=== PATIENT | female | born 1940 | race Caucasian/White ===

== ENCOUNTER 2022-07-22 21:32 | Inpatient (IN) | payer OTHER ==
[~2022-07-22] VITALS: Ht 157.5 cm; Wt 60.3 kg
[2022-07-22 21:45] VITALS: BP 158/70
--- NOTE | 2022-07-22 21:45 | NUR ---
[facility] TO BED #10
--- NOTE | 2022-07-22 21:50 | NUR ---
Patient resting in bed, A/Ox4, chest rise and fall symmetrical, no s/s of distress, on monitor.
[2022-07-22] MEDS ORDERED: ONDANSETRON 4 MG/2 ML VIAL IVP ONE (22:15)
[2022-07-22] MEDS ORDERED: NACL 0.9% 1,000 ML IV ONE (22:15)
[2022-07-22] MEDS ORDERED: MORPHINE SULFATE 4 MG/ML SYR IVP ONE (22:15)
[2022-07-22 22:36] LABS: HEMATOCRIT 41.9 % (36-48); HEMOGLOBIN 14.1 g/dL (12.0-16.0); LYMPHOCYTES # (AUTO) 0.2 K/uL (2.5-16.5); LYMPHOCYTES % (AUTO) 1.4 % (20.5-51.1); MEAN CORPUSCULAR HEMOGLOBIN 30 pg (27-31); MEAN CORPUSCULAR HGB CONC 34 g/dL (33-37); MEAN CORPUSCULAR VOLUME 88.1 fL (80-94); MONOCYTES # (AUTO) 0.8 K/uL (0.8-1.0); MONOCYTES % (AUTO) 5.3 % (1.7-9.3); NEUTROPHILS # (AUTO) 14.5 K/uL (1.8-7.7); NEUTROPHILS % (AUTO) 93.3 % (42.2-75.2); PLATELET COUNT (AUTO) 221 K/uL (140-450); RED BLOOD CELL COUNT(AUTO) 4.75 MIL/uL (4.20-5.40); RED CELL DISTRIBUTION WIDTH 13.3 % (11.6-13.7); WHITE BLOOD COUNT (AUTO) 15.5 K/uL (4.8-10.8)
[2022-07-22 22:52] LABS: ALBUMIN 3.2 g/dL (3.4-5.0); ANION GAP 14.1 (8-16); ASPARTATE AMINOTRANSFERASE 27 U/L (15-37); CHLORIDE 98 mmol/L (98-107); CREATININE 0.9 mg/dL (0.6-1.3); GLUCOSE 217 mg/dL (74-106); LIPASE 73 U/L (73-393); POTASSIUM 4.1 mmol/L (3.5-5.1); SODIUM SERUM 133 mmol/L (136-145); TOTAL BILIRUBIN 0.6 mg/dL (0.0-1.0); UREA NITROGEN, BLOOD 21 mg/dL (7-18)
--- NOTE | 2022-07-22 23:59 | NUR ---
CALL FROM PT SON HAYDEN WHO LEFT CONTACT INFO FOR UPDATE:
--- NOTE | 2022-07-23 00:01 | NUR ---
PT TAKEN TO CT
--- NOTE | 2022-07-23 00:16 | NUR ---
PT RETURN FROM CT
[2022-07-23] MEDS ORDERED: PIPERACILLIN/TAZOBACTAM 3.375 GM in DEXTROSE 5% 50 ML IV ONE (01:05)
--- NOTE | 2022-07-23 01:10 | NUR ---
Patient resting in bed, A/Ox4, chest rise and fall symmetrical, no c/o pain or s/s of distress, on monitor.
[2022-07-23] MEDS ORDERED: PIPERACILLIN/TAZOBACTAM 3.375 GM VIAL IV ONE (01:43)
--- NOTE | 2022-07-23 02:11 | NUR ---
Patient and patient's family stated that they "don't remember what medications patient takes," and "there is no one at the house to get the medications to bring to the hospital."
[2022-07-23] MEDS ORDERED: NACL 0.9% 1,000 ML IV ONE (02:20)
[2022-07-23] MEDS ORDERED: ACETAMINOPHEN 325 MG TAB PO PRN (02:35)
[2022-07-23] MEDS ORDERED: MAGNESIUM OXIDE 400 MG TAB PO PRN (02:35)
[2022-07-23] MEDS ORDERED: HYDROcodone/APAP 5/325 MG 1 TAB TAB PO PRN (02:35)
[2022-07-23] MEDS ORDERED: MORPHINE SULFATE 2 MG/ML SYR IVP PRN (02:35)
[2022-07-23] MEDS ORDERED: MAG SULF 2000 MG/WATER PREMIX 50 ML IV PRN (02:35)
[2022-07-23] MEDS ORDERED: KCL 20 MEQ IN 100 mL PREMIX 200 ML IV PRN (02:35)
--- NOTE | 2022-07-23 03:00 | NUR ---
Patient resting in bed, A/Ox4, chest rise and fall symmetrical, no c/o pain or s/s of distress, on monitor.
[2022-07-23] MEDS: NACL 0.9% 1,000 ML IV SCH ×2 (03:35→15:05)
[2022-07-23] MEDS ORDERED: cefTRIAXone 1,000 MG VIAL ONE (03:51)
--- NOTE | 2022-07-23 04:01 | NUR ---
Patient resting in bed, A/Ox4, chest rise and fall symmetrical, no c/o pain or s/s of distress, on monitor.
--- NOTE | 2022-07-23 04:27 | NUR ---
Patient will be admitted to care of Dr. Martínez. Admited to Tele. Will go to room 111A. Belongings list completed. Report to Zeny STONE. Zeny STONE verbalized understanding of report, no further questions.
--- NOTE | 2022-07-23 04:35 | NUR ---
ADMITTED PATIENT TO [facility] UNIT FROM ER VIA [facility] AWAKE ALERT ORIENTED. CC: ABDOMINAL PAIN. GRENADIAN SPEAKING. ON ROOM AIR. NO ACUTE DISTRESS NOTED. NO COMPLAINTS OF PAIN AT THIS TIME. IVF NS INFUSING WELL. CALL LIGHT WITHIN REACH. ALL SAFETY PRECAUTIONS ARE IN PLACE. MRSA SCREENING DONE. V/S: 97.6, 70, 133/60, 17, 95% ROOM AIR.
[2022-07-23] MEDS: metroNIDAZOLE 500 MG/NS PREMIX 100 ML IV SCH ×3 (05:25→20:59)
--- NOTE | 2022-07-23 07:32 | NUR ---
RECEIVED PATIENT FROM PM NURSE FOR CONTINUATION OF CARE. PATIENT SEEN IN BED AWAKE WATCHING TV. PATIENT CARE PLANNING AND MONITORING RESUMED.
--- NOTE | 2022-07-23 07:32 | NUR ---
ENDORSED PATIENT TO MORNING NURSE FOR CONTINUITY OF CARE.
[2022-07-23 08:00] VITALS: BP 134/55
[2022-07-23 08:16] LABS: BASOPHILS % (AUTO) 0.1 % (0.0-2.0); EOSINOPHILS % (AUTO) 0.1 % (0.0-4.0); HEMATOCRIT 43.3 % (36-48); HEMOGLOBIN 14.4 g/dL (12.0-16.0); LYMPHOCYTES # (AUTO) 0.7 K/uL (2.5-16.5); LYMPHOCYTES % (AUTO) 7.5 % (20.5-51.1); MEAN CORPUSCULAR HEMOGLOBIN 30 pg (27-31); MEAN CORPUSCULAR HGB CONC 33 g/dL (33-37); MEAN CORPUSCULAR VOLUME 89.1 fL (80-94); MONOCYTES # (AUTO) 1.1 K/uL (0.8-1.0); MONOCYTES % (AUTO) 11.6 % (1.7-9.3); NEUTROPHILS # (AUTO) 7.9 K/uL (1.8-7.7); NEUTROPHILS % (AUTO) 80.7 % (42.2-75.2); PLATELET COUNT (AUTO) 218 K/uL (140-450); RED BLOOD CELL COUNT(AUTO) 4.86 MIL/uL (4.20-5.40); RED CELL DISTRIBUTION WIDTH 13.6 % (11.6-13.7); WHITE BLOOD COUNT (AUTO) 9.7 K/uL (4.8-10.8)
[2022-07-23 08:30] LABS: ANION GAP 8.8 (8-16); CARBON DIOXIDE 25.6 mmol/L (21-32); CHLORIDE 105 mmol/L (98-107); CREATININE 0.8 mg/dL (0.6-1.3); GLUCOSE 151 mg/dL (74-106); POTASSIUM 4.4 mmol/L (3.5-5.1); SODIUM SERUM 135 mmol/L (136-145); UREA NITROGEN, BLOOD 21 mg/dL (7-18)
--- NOTE | 2022-07-23 09:18 | NUR ---
PATIENT HAS BEEN SCREENED AND CATEGORIZED MODERATE NUTRITION RISK. PATIENT WILL BE SEEN WITHIN 3-5 DAYS OF ADMISSION. 07/23/22-07/28/22 REVIEWED BY KAREN ANN RD
--- NOTE | 2022-07-23 10:40 | NUR ---
PATIENT FAMILY MEMBER PROVIDED LIST OF MAINTENANCE MEDICATION FOR RECONCILIATION. MED RECONCILIATION DONE.
[2022-07-23 12:00] VITALS: BP 96/62
[2022-07-23] MEDS: amLODIPine 5 MG TAB PO SCH (12:58)
[2022-07-23] MEDS: hydroCHLOROthiazide 25 MG TAB PO SCH (12:59)
[2022-07-23] MEDS: PANTOPRAZOLE 40 MG TABEC PO SCH (12:59)
[2022-07-23] MEDS: VENLAFAXINE 37.5 MG TAB PO SCH (13:00)
[2022-07-23] MEDS: LOSARTAN 50 MG TAB PO SCH (13:00)
[2022-07-23] MEDS: METOPROLOL SUCCINATE 50 MG TABER PO SCH ×2 (13:02→20:59)
--- NOTE | 2022-07-23 15:00 | NUR ---
PATIENT WAS CHANGED TO CLEAR LIQUID DIET AND NPO PAST MIDNIGHT.
[2022-07-23 16:00] VITALS: BP 116/75
--- NOTE | 2022-07-23 19:20 | NUR ---
PATIENT ENDORSED TO PM SHIFT NURSE FOR CONTINUATION OF CARE
[2022-07-23 20:00] VITALS: BP 137/59
[2022-07-24] VITALS: BP 135/68
[2022-07-24] MEDS ORDERED: cefTRIAXone 1,000 MG VIAL ONE (02:55)
[2022-07-24] MEDS: NACL 0.9% 1,000 ML IV SCH ×3 (03:35→23:26)
[2022-07-24 04:00] VITALS: BP 134/64
[2022-07-24] MEDS: metroNIDAZOLE 500 MG/NS PREMIX 100 ML IV SCH ×3 (04:58→20:36)
[2022-07-24 06:57] LABS: BASOPHILS % (AUTO) 0.2 % (0.0-2.0); EOSINOPHILS # (AUTO) 0.1 K/uL (0-0.4); EOSINOPHILS % (AUTO) 1.8 % (0.0-4.0); HEMATOCRIT 37.8 % (36-48); HEMOGLOBIN 12.6 g/dL (12.0-16.0); LYMPHOCYTES # (AUTO) 1.5 K/uL (2.5-16.5); LYMPHOCYTES % (AUTO) 17.8 % (20.5-51.1); MEAN CORPUSCULAR HEMOGLOBIN 30 pg (27-31); MEAN CORPUSCULAR HGB CONC 33 g/dL (33-37); MEAN CORPUSCULAR VOLUME 89.2 fL (80-94); MONOCYTES # (AUTO) 0.9 K/uL (0.8-1.0); MONOCYTES % (AUTO) 11.6 % (1.7-9.3); NEUTROPHILS # (AUTO) 5.6 K/uL (1.8-7.7); NEUTROPHILS % (AUTO) 68.6 % (42.2-75.2); PLATELET COUNT (AUTO) 185 K/uL (140-450); RED BLOOD CELL COUNT(AUTO) 4.24 MIL/uL (4.20-5.40); RED CELL DISTRIBUTION WIDTH 14.3 % (11.6-13.7); WHITE BLOOD COUNT (AUTO) 8.2 K/uL (4.8-10.8)
--- NOTE | 2022-07-24 07:05 | NUR ---
ASSUMED CONTINUITY OF CARE. INITIAL ASSESSMENT DONE. KEEP COMFORTABLE ON BED. EXPLAINED USE OF CALL LIGHT/BED/TV/BATHROOM. VERBALIZED UNDERSTANDING. CALL LIGHT WITHIN REACH.
[2022-07-24 07:11] LABS: ALBUMIN 2.1 g/dL (3.4-5.0); ANION GAP 8.5 (8-16); ASPARTATE AMINOTRANSFERASE 18 U/L (15-37); CARBON DIOXIDE 27.3 mmol/L (21-32); CHLORIDE 106 mmol/L (98-107); CREATININE 0.8 mg/dL (0.6-1.3); GLUCOSE 108 mg/dL (74-106); MAGNESIUM 1.9 mg/dL (1.8-2.4); POTASSIUM 3.8 mmol/L (3.5-5.1); SODIUM SERUM 138 mmol/L (136-145); TOTAL BILIRUBIN 0.3 mg/dL (0.0-1.0); UREA NITROGEN, BLOOD 18 mg/dL (7-18)
[2022-07-24 08:00] VITALS: BP 149/61
--- NOTE | 2022-07-24 08:34 | NUR ---
HECTOR OVALLE CAME AND SPOKE TO PT. AND PT. SON AT BEDSIDE.
[2022-07-24] MEDS: PANTOPRAZOLE 40 MG TABEC PO SCH (08:42)
[2022-07-24] MEDS: METOPROLOL SUCCINATE 50 MG TABER PO SCH ×2 (08:42→21:35)
[2022-07-24] MEDS: hydroCHLOROthiazide 25 MG TAB PO SCH (08:42)
[2022-07-24] MEDS: LOSARTAN 50 MG TAB PO SCH (08:43)
[2022-07-24] MEDS: amLODIPine 5 MG TAB PO SCH (08:43)
[2022-07-24] MEDS: VENLAFAXINE 37.5 MG TAB PO SCH (08:44)
[2022-07-24] MEDS ORDERED: VENLAFAXINE 37.5 MG TAB PO SCH (09:00)
--- NOTE | 2022-07-24 09:10 | NUR ---
PAGED DR. LO AND INFORMED OF PT. BLOOD IN STOOL AND HOLDING OF HEPARIN 5000 UNITS SUB-Q Q12.
--- NOTE | 2022-07-24 09:18 | NUR ---
DR. LO PAGED BACK AND ORDERED TO HOLD HEPARIN 5000 UNITS SUB-Q Q12 DUE TO BLOOD IN STOOL. INFORMED CHARGE NURSE LUCY SANTO.
--- NOTE | 2022-07-24 09:25 | NUR ---
INSERTED NEW IV LINE ON RIGHT FOREARM GAUGE #22. REMOVED IV ON RIGHT AC GAUGE #20 DUE TO LEAKAGE. TOLERATED WELL.
[2022-07-24 12:00] VITALS: BP 134/59
--- NOTE | 2022-07-24 13:20 | NUR ---
DC PLANNING ASSESSMENT COMPLETE PLEASE REFER TO ASSESSMENT FOR ADDITIONAL DETAILS PT REPORTS DC PLAN IS TO RETURN HOME WITH FAMILY PROVIDING TRANSPORTATION, WHEN MEDICALLY STABLE. Addendum: 07/25/22 at 0830 by Alysha BARTON Amended: Links added.
--- NOTE | 2022-07-24 14:35 | NUR ---
DR. LO SPOKE TO PT. AND PT. FAMILY MEMBER AT BEDSIDE.
--- NOTE | 2022-07-24 15:13 | NUR ---
DC PLANN[age] YRS OLD FEMALE PATIENT WAS ADMITTED FROM HOME WITH A DX OF ABDOMINAL PAIN. PATIENT HAS A HX OF HTN, CHOLECYSTECTOMY AND HYSTERECTOMY. CT ABD SHOWED BRANCHING PATTERN WITHIN THE RIGHT LIVER LOBE , MILD ASCITES AND SMALL LEFT LOWER LOBE PULMONARY NODULES. CXR SHOWED INTERSTITIAL EDEMA/INFILTRATES. RAPID COVID TEST NEGATIVE. ADMINISTERED IVF AND IV ABX ROCEPHIN. CONSULTED WITH SURGEON AND GI. DC PLAN TO GO HOME WHEN STABLE CM TO FOLLOW.
[2022-07-24 16:00] VITALS: BP 140/57
--- NOTE | 2022-07-24 17:34 | NUR ---
DR. BEAR CAME AND SPOKE TO PT. AND PT. SON AT BEDSIDE.
--- NOTE | 2022-07-24 19:10 | NUR ---
BEDSIDE REPORT GIVEN TO GUALBERTO TORRES. IN STABLE CONDITION. ALSO ENDORSED ABOUT C-DIFF SPECIMEN COLLECTION.
--- NOTE | 2022-07-24 19:11 | NUR ---
RECD PATIENT RESTING IN BED, AWAKE, A/OX4. RESPIRATION EVEN AND UNLABORED. ABLE TO AMBULATE WITH ASSISTANCE TO THE BR. IV OF NS INFUSING AT 80 ML/HR RIGHT FOREARM G22. CONVERSING WITH SON AT THE BEDSIDE. VERBALIZED SHE IS STILL HAVING LOOSE BM. PATIENT AWARE THAT STOOL SPECIMEN NEEDED TO BE SENT TO THE LAB FOR C-DIFF. DENIES PAIN 0/10.
--- NOTE | 2022-07-24 19:12 | NUR ---
Patient's Plan of Care was discussed and reviewed with ADITYA: GUALBERTO
[2022-07-24 20:00] VITALS: BP 147/64
--- NOTE | 2022-07-24 20:00 | NUR ---
COLLECTED SPECIMEN FOR C-DIFF. CONTACT ISOLATION POSTED NEAR DOOR. EDUCATED SON AND PATIENT ON PROPER HANDWASHING AND ISOLATION PRECAUTION. VERBALIZED UNDERSTANDING.
--- NOTE | 2022-07-24 21:35 | NUR ---
SCHEDULED MEDICATION FOR THE NIGHT ADMINISTERED. REFUSED HEPARIN. EXPLAINED ITS IMPORTANCE BUT STILL REFUSED. WANTS TO TAKE IT TOMORROW MORNING.
--- NOTE | 2022-07-24 23:55 | NUR ---
RESTING COMFORTABLY IN BED. WAKEN UP TO CHANGED BATTERIES OF MONITOR. REMINDED TO CALL NURSE BEFORE GETTING OUT OF BED FOR ASSISTANCE. VERBALIZED UNDERSTANDING.
[2022-07-25] VITALS: BP 136/57
--- NOTE | 2022-07-25 01:27 | NUR ---
SLEEPING COMFORTABLY IN BED. RESPIRATION EVEN AND UNLABORED. CALL LIGHT IN REACH.
--- NOTE | 2022-07-25 03:20 | NUR ---
CHECKED PATIENT, RESTING IN BED HALF AWAKE. INSTRUCTED TO CALL IF SHE NEEDS HELP.
[2022-07-25 04:00] VITALS: BP 123/63
[2022-07-25] MEDS: NACL 0.9% 1,000 ML IV SCH ×2 (04:37→16:32)
[2022-07-25] MEDS: metroNIDAZOLE 500 MG/NS PREMIX 100 ML IV SCH ×3 (04:39→20:10)
--- NOTE | 2022-07-25 06:00 | NUR ---
AMBULATED TO BR. HAD SMALL AMOUNT OF DARK COLORED LOOSE BM.
[2022-07-25 06:48] LABS: BASOPHILS # (AUTO) 0.1 K/uL (0.00-0.22); BASOPHILS % (AUTO) 0.6 % (0.0-2.0); EOSINOPHILS # (AUTO) 0.1 K/uL (0-0.4); EOSINOPHILS % (AUTO) 1.5 % (0.0-4.0); HEMATOCRIT 37.6 % (36-48); HEMOGLOBIN 12.7 g/dL (12.0-16.0); LYMPHOCYTES # (AUTO) 1.3 K/uL (2.5-16.5); LYMPHOCYTES % (AUTO) 15.3 % (20.5-51.1); MEAN CORPUSCULAR HEMOGLOBIN 30 pg (27-31); MEAN CORPUSCULAR HGB CONC 34 g/dL (33-37); MEAN CORPUSCULAR VOLUME 89.2 fL (80-94); MONOCYTES # (AUTO) 0.6 K/uL (0.8-1.0); MONOCYTES % (AUTO) 7.4 % (1.7-9.3); NEUTROPHILS # (AUTO) 6.2 K/uL (1.8-7.7); NEUTROPHILS % (AUTO) 75.2 % (42.2-75.2); PLATELET COUNT (AUTO) 195 K/uL (140-450); RED BLOOD CELL COUNT(AUTO) 4.22 MIL/uL (4.20-5.40); RED CELL DISTRIBUTION WIDTH 13.8 % (11.6-13.7); WHITE BLOOD COUNT (AUTO) 8.2 K/uL (4.8-10.8)
[2022-07-25 07:00] LABS: ALBUMIN 2.3 g/dL (3.4-5.0); ANION GAP 10.1 (8-16); ASPARTATE AMINOTRANSFERASE 19 U/L (15-37); CARBON DIOXIDE 27.2 mmol/L (21-32); CHLORIDE 107 mmol/L (98-107); CREATININE 0.6 mg/dL (0.6-1.3); GLUCOSE 112 mg/dL (74-106); MAGNESIUM 1.9 mg/dL (1.8-2.4); POTASSIUM 3.3 mmol/L (3.5-5.1); SODIUM SERUM 141 mmol/L (136-145); TOTAL BILIRUBIN 0.3 mg/dL (0.0-1.0); UREA NITROGEN, BLOOD 5 mg/dL (7-18)
--- NOTE | 2022-07-25 07:30 | NUR ---
RECEIVED REPORT FROM CORPORATE TRAVEL EXPERT NURSE. PT IS RESTING WITH CHEST RISING AND FALLING. NO ACUTE S/S OF DISTRESS. ALL SAFETY MEASURES IN PLACE. CALL LIGHT WITHIN REACH.
[2022-07-25 08:00] VITALS: BP 138/55
[2022-07-25] MEDS ORDERED: CRUSHER, PILL MC ONE (09:01)
[2022-07-25] MEDS: METOPROLOL SUCCINATE 50 MG TABER PO SCH ×2 (09:04→20:47)
[2022-07-25] MEDS: LOSARTAN 50 MG TAB PO SCH (09:05)
[2022-07-25] MEDS: amLODIPine 5 MG TAB PO SCH (09:05)
[2022-07-25] MEDS: hydroCHLOROthiazide 25 MG TAB PO SCH (09:05)
[2022-07-25] MEDS: POTASSIUM CHLORIDE 10 MEQ TABER PO PRN (09:06)
[2022-07-25] MEDS: VENLAFAXINE 37.5 MG TAB PO SCH (09:06)
[2022-07-25] MEDS: PANTOPRAZOLE 40 MG TABEC PO SCH (09:06)
--- NOTE | 2022-07-25 09:28 | NUR ---
ALL OF DR HELLER QUESTIONS ANSWERED REGARDING GI CONSULT, REPORT READ.
[2022-07-25 12:00] VITALS: BP 146/56
[2022-07-25 16:00] VITALS: BP 141/52
--- NOTE | 2022-07-25 18:00 | NUR ---
CHANGED TO NEW NS BAG AT 80. PT IS STABLE AND EATING DINNER.
--- NOTE | 2022-07-25 19:41 | NUR ---
RECEIVED REPORT FROM SABRINA STONE FOR CONTINUITY OF CARE. PATIENT WAS STABLE DURING SHIFT REPORT. PATIENT WAS NOTED IN BED ASLEEP BUT EASY TO AROUSE BY CALLING HER NAME. PATIENT DID NOT HAVE HER OXYGEN ON AND NO S/S OF RESPIRATORY DISTRESS OR DISCOMFORT. COLIN DRAINAGE NOTED BRIGHT RED WITH NO SENTIMENTS. PATIENT DENIES ANY PAIN/DISCOMFORT AT THIS TIME. SIDE RAILS UP X 3 FOR SAFETY AND COMFORT. CALL LIGHT WITHIN REACH. [id number] Addendum: 07/25/22 at 1948 by Lissett Flores LVN WRONG NOTATION TO THIS ACCOUNT....................RECEIVED PATIENT IN BED WITH FAMILY AT BEDSIDE. NO COMPLAINED OF ABDOMINAL PAIN/DISCOMFORT. PATIENT HAD A BOWEL MOVEMENT BUT FORMED NOT LIQUID. PATIENT IS AFGHAN SPEAKING BUT CAN COMMUNICATE WITH MINIMAL FRENCH. PATIENT DENIES ANY PAIN AT THIS TIME. NO NOTED RESPIRATORY DISTRESS. SIDE RAILS UP X 2 CALL LIGHT WITHIN REACH FOR ALL AND ANY ASSISTANCE. [email or web address]
[2022-07-25 20:00] VITALS: BP 151/63
--- NOTE | 2022-07-25 20:00 | NUR ---
Patient's Plan of Care was discussed and reviewed with CARLOTA BURGESS:
--- NOTE | 2022-07-25 22:45 | NUR ---
PATIENT WAS ABLE TO TAKE MEDICATION WITHOUT INCIDENT. PATIENT REMAINS CLEAN AND DRY. SIDE RAILS UP X2 CALL LIGHT WITHIN REACH. [email or web address]
[2022-07-26] VITALS: BP 153/67
--- NOTE | 2022-07-26 01:22 | NUR ---
PATIENT NOTED IN BED ASLEEP. CHEST RISING AND FALLING EVENLY. NO NOTED S/S OF PAIN/DISCOMFORT. NO NOTED S/S OF RESPIRATORY DISTRESS. CALL LIGHT WITHIN REACH. [email or web address]
--- NOTE | 2022-07-26 03:05 | NUR ---
DURING ROUNDS NURSING NOTED PATIENT ASLEEP. NO NOTED S/S OF PAIN/DISCOMFORT. NO NOTED S/S OR RESPIRATORY DISTRESS. CHEST RISING AND FALLING EVENLY. SIDE RAILS UP X 2 CALL LIGHT WITHIN REACH. [email or web address]
[2022-07-26 04:00] VITALS: BP 129/51
[2022-07-26] MEDS: metroNIDAZOLE 500 MG/NS PREMIX 100 ML IV SCH ×2 (04:14→13:00)
[2022-07-26] MEDS: NACL 0.9% 1,000 ML IV SCH (05:28)
[2022-07-26 06:49] LABS: BASOPHILS % (AUTO) 0.5 % (0.0-2.0); EOSINOPHILS # (AUTO) 0.1 K/uL (0-0.4); EOSINOPHILS % (AUTO) 1.6 % (0.0-4.0); HEMATOCRIT 39.6 % (36-48); HEMOGLOBIN 13.2 g/dL (12.0-16.0); LYMPHOCYTES % (AUTO) 23.9 % (20.5-51.1); MEAN CORPUSCULAR HEMOGLOBIN 29 pg (27-31); MEAN CORPUSCULAR HGB CONC 33 g/dL (33-37); MEAN CORPUSCULAR VOLUME 88.3 fL (80-94); MONOCYTES # (AUTO) 0.6 K/uL (0.8-1.0); MONOCYTES % (AUTO) 6.8 % (1.7-9.3); NEUTROPHILS # (AUTO) 5.7 K/uL (1.8-7.7); NEUTROPHILS % (AUTO) 67.2 % (42.2-75.2); PLATELET COUNT (AUTO) 215 K/uL (140-450); RED BLOOD CELL COUNT(AUTO) 4.48 MIL/uL (4.20-5.40); RED CELL DISTRIBUTION WIDTH 13.7 % (11.6-13.7); WHITE BLOOD COUNT (AUTO) 8.5 K/uL (4.8-10.8)
[2022-07-26 06:59] LABS: ALBUMIN 2.7 g/dL (3.4-5.0); ANION GAP 9.3 (8-16); ASPARTATE AMINOTRANSFERASE 17 U/L (15-37); CHLORIDE 104 mmol/L (98-107); CREATININE 0.7 mg/dL (0.6-1.3); GLUCOSE 133 mg/dL (74-106); MAGNESIUM 1.7 mg/dL (1.8-2.4); POTASSIUM 3.3 mmol/L (3.5-5.1); SODIUM SERUM 139 mmol/L (136-145); TOTAL BILIRUBIN 0.3 mg/dL (0.0-1.0); UREA NITROGEN, BLOOD 4 mg/dL (7-18)
--- NOTE | 2022-07-26 07:21 | NUR ---
ENDORSED TO AM SHIFT NURSE FOR CONTINUITY OF CARE. PLEASE FOLLOW UP WITH STOOL IN THE LAB. [email or web address]
[2022-07-26] MEDS: VENLAFAXINE 37.5 MG TAB PO SCH (09:59)
[2022-07-26] MEDS: PANTOPRAZOLE 40 MG TABEC PO SCH (09:59)
[2022-07-26] MEDS: METOPROLOL SUCCINATE 50 MG TABER PO SCH (09:59)
[2022-07-26] MEDS: hydroCHLOROthiazide 25 MG TAB PO SCH (10:01)
[2022-07-26] MEDS: LOSARTAN 50 MG TAB PO SCH (10:03)
[2022-07-26] MEDS: amLODIPine 5 MG TAB PO SCH (10:03)
[2022-07-26] MEDS: POTASSIUM CHLORIDE 10 MEQ TABER PO PRN (10:04)
[2022-07-26 12:00] VITALS: BP 126/80
[2022-07-26] MEDS ORDERED: METR375C7 PO (14:15)
[2022-07-26] MEDS ORDERED: CIPR500T4 PO (14:15)
[2022-07-26 14:54] VITALS: BP 126/85
--- NOTE | 2022-07-26 15:43 | NUR ---
PAPERWORK FOR DISCHARGE HOME SIGNED BY GRANDSON. PT IN OWN CLOTHING AND READY TO GO. ALL BELONGINGS IN POSSESSION OF PT/FAMILY. DISCHARGE BOOKLET EXPLAINED TO FAMILY AND THEN GIVEN TO PT'S FAMILY. TELEMETRY BOX REMOVED. PT IN STABLE CONDITION. IV SALINE LOCK REMOVED AND COVERED W GAUZE AND TAPE. PT BEING BROUGHT TO DISCHARGE AREA IN FRONT OF HOSPITAL FOR TRANSPORTATION HOME VIA PRIVATE AUTO. PT CONDITION STABLE.
--- NOTE | 2022-07-29 11:13 | NUR ---
CALLED DR JONAH PORTILLO'S OFFICE LOCATED AT [facility] [address]. SPOKE WITH JEZ PORTILLO WAS ABLE TO INFORM ME OF PATIENTS FOLLOW UP APPOINTMENT FOR 07/30/2022 AT 1100.
== END 2022-07-26 16:06 | disposition home or self-care (01) | DRG 378 ==
LOC: MED 21:32 → MTU 07-23 02:38
PROVIDERS: ADMIT Hospitalist; ATTEND Internal Medicine Gastroenterology
DX: K92.2 Gastrointestinal hemorrhage, unspecified (principal); A09 Infectious gastroenteritis and colitis, unspecified; R18.8 Other ascites; R65.10 Systemic inflammatory response syndrome (SIRS) of non-infectious origin without acute organ dysfunction; K92.0 Hematemesis; K92.1 Melena; F32.A Depression, unspecified; I10 Essential (primary) hypertension; Z20.822 Contact with and (suspected) exposure to COVID-19
CPT/HCPCS: 36415; 71045; 80048; 80053; 82272; 83605; 83690; 83735; 84484; 85025; 87040; 87070; 87081; 93005; 96361; 96374; 96375; 99291; 99292; J0696; J1644; J2270; J2405; J2543; J3490; J7060; Q0092